=== PATIENT | male | born 2000 | race Caucasian/White ===

== ENCOUNTER 2020-07-23 15:40 | Emergency (ER) | payer SELFPAY ==
[2020-07-23] MEDS ORDERED: Sodium Chloride 0.9% 10 ML Syringe FLUSH PRN (16:27)
[2020-07-23] MEDS ORDERED: Sodium Chloride 0.9% 1,000 ML IV STA (16:27)
[2020-07-23] MEDS ORDERED: LORazepam 2 MG/ML SDV IVPUSH ONE (16:27)
--- NOTE | 2020-07-23 16:32 | EDM.PDOC ---
ED HPI GENERAL MEDICAL PROBLEM - General Chief Complaint: Neurological Problem Stated Complaint: SEIZURE Time Seen by Provider: 07/23/20 16:21 Source of Information: Reports: Patient History Limitations: Reports: No Limitations - History of Present Illness INITIAL COMMENTS - FREE TEXT/NARRATIVE: Patient is a 19-year-old male presenting to the emergency department after having a seizure at work. Patient states that around 1330 this afternoon, he was working. His coworkers state that he fell forward and had what they describe as a tonic-clonic seizure lasting about 1 minute. He states that he was postictal for about 5 minutes and still feels quite groggy at this time. Patient does have a history of seizures. States he had his first when he was a teenager, however at that time he was under the influence of drugs. He had a return of seizures about 1 year ago and states that he is actually had 3 episodes similar to this this week. He has seen Dr. Wheeler, neurologist in [place]. Is currently scheduled for an MRI in the , however he is not currently on any antiseizure medications. She denies any significant pain to his head or face after falling. He states he was bleeding above his upper tooth initially but that has resolved is no longer painful. He admits to social alcohol consumption as well as marijuana use. Denies any other illicit drug use. Headache Pain Score (Numeric/FACES): 7 - Related Data Allergies Allergy/AdvReac Type Severity Reaction Status Date / Time Penicillins Allergy Cannot Verified 07/23/20 16:19 Remember Past Medical History - Past Health History Medical/Surgical History: Denies Medical/Surgical History Neurological History: Reports: Seizure Social & Family History - Tobacco Use Smoking Status *Q: Current Every Day Smoker Years of Tobacco use: 5 Packs/Tins Daily: 1 - Caffeine Use Caffeine Use: Reports: Coffee, Energy Drinks, Soda, Tea - Recreational Drug Use Recreational Drug Use: Yes Recreational Drug Type: Reports: Marijuana/Hashish ED ROS GENERAL - Review of Systems Review Of Systems: See Below Constitutional: Reports: No Symptoms. Denies: Fever, Chills HEENT: Reports: No Symptoms Respiratory: Reports: No Symptoms Cardiovascular: Reports: No Symptoms Endocrine: Reports: No Symptoms GI/Abdominal: Reports: No Symptoms : Reports: No Symptoms Musculoskeletal: Reports: No Symptoms Skin: Reports: No Symptoms Neurological: Reports: Seizure Psychiatric: Reports: No Symptoms Hematologic/Lymphatic: Reports: No Symptoms Immunologic: Reports: No Symptoms - Physical Exam Exam: See Below General Appearance: Alert, WD/WN, No Apparent Distress Eye Exam: Bilateral Eye: Normal Inspection, PERRL Respiratory/Chest: No Respiratory Distress, Lungs Clear, Normal Breath Sounds, No Accessory Muscle Use, Chest Non-Tender Cardiovascular: Normal Peripheral Pulses, Regular Rate, Rhythm, No Edema, No Gallop, No JVD, No Murmur, No Rub GI/Abdominal: Normal Bowel Sounds, Soft, Non-Tender, No Organomegaly, No Distention, No Abnormal Bruit, No Mass Neuro Exam (Abbreviated): Alert, Oriented, CN II-XII Intact, Normal Cognition, Normal Gait, Normal Reflexes, No Motor/Sensory Deficits Psychiatric: Normal Affect, Normal Mood Skin Exam: Warm, Dry, Intact, Normal Color, No Rash Course - Vital Signs Last Recorded V/S: Last Vital Signs Temp 97.6 F 07/23/20 16:14 Pulse 75 07/23/20 16:14 Resp 18 07/23/20 16:14 BP 121/70 07/23/20 16:14 Pulse Ox 99 07/23/20 16:14 - Orders/Labs/Meds Orders: Active Orders 24 hr Category Date Time Status Peripheral IV Care [RC] . DIRECTED Care 07/23/20 16:27 Active Sodium Chloride 0.9% [Normal Saline] 1,000 ml Med 07/23/20 16:27 Active IV NOW Sodium Chloride 0.9% [Saline Flush] Med 07/23/20 16:27 Active 10 ml FLUSH ASDIRECTED PRN Peripheral IV Insertion Adult [OM.PC] Stat Oth 07/23/20 16:27 Ordered Medication Orders Sodium Chloride (Normal Saline) 1,000 mls @ 150 mls/hr IV NOW STA Stop: 07/23/20 23:06 Last Admin: 07/23/20 16:55 Dose: 150 mls/hr Documented by: SOPHIE Sodium Chloride (Saline Flush) 10 ml FLUSH ASDIRECTED PRN PRN Reason: Keep Vein Open Last Admin: 07/23/20 16:57 Dose: 10 ml Documented by: SOPHIE Labs: Laboratory Tests 07/23/20 07/23/20 07/23/20 Range/Units 16:50 16:59 16:59 WBC 8.66 (4.23-9.07) K/mm3 RBC 4.77 (4.63-6.08) M/mm3 Hgb 15.3 (13.7-17.5) gm/dl Hct 45.1 (40.1-51.0) % MCV 94.5 H (79.0-92.2) fl MCH 32.1 (25.7-32.2) pg MCHC 33.9 (32.2-35.5) g/dl RDW Std Deviation 42.8 (35.1-43.9) fL Plt Count 359 H (163-337) K/mm3 MPV 10.0 (9.4-12.3) fl Neut % (Auto) 62.9 (34.0-67.9) % Lymph % (Auto) 28.4 (21.8-53.1) % [place] % (Auto) 7.4 (5.3-12.2) % Eos % (Auto) 1.0 (0.8-7.0) Baso % (Auto) 0.2 (0.1-1.2) % Neut # (Auto) 5.44 H (1.78-5.38) K/mm3 Lymph # (Auto) 2.46 (1.32-3.57) K/mm3 [place] # (Auto) 0.64 (0.30-0.82) K/mm3 Eos # (Auto) 0.09 (0.04-0.54) K/mm3 Baso # (Auto) 0.02 (0.01-0.08) K/mm3 Sodium 140 (136-145) mEq/L Potassium 3.8 (3.5-5.1) mEq/L Chloride 103 (98-107) mEq/L Carbon Dioxide 28 (21-32) mEq/L Anion Gap 12.8 (5-15) BUN 13 (7-18) mg/dL Creatinine 1.0 (0.7-1.3) mg/dL Est Cr Clr Drug Dosing 152.46 mL/min Estimated GFR (MDRD) > 60 (>60) mL/min BUN/Creatinine Ratio 13.0 L (14-18) Glucose 87 (74-106) mg/dL Lactic Acid (0.4-2.0) mmol/L Calcium 9.2 (8.5-10.1) mg/dL Total Bilirubin 0.5 (0.2-1.0) mg/dL AST 19 (15-37) U/L ALT 22 (16-63) U/L Alkaline Phosphatase 68 (46-116) U/L Creatine Kinase 157 (39-308) U/L Total Protein 7.7 (6.4-8.2) g/dl Albumin 4.5 (3.4-5.0) g/dl Globulin 3.2 gm/dL Albumin/Globulin Ratio 1.4 (1-2) Urine Color Yellow (Yellow) Urine Appearance Clear (Clear) Urine pH 7.0 (5.0-8.0) Ur Specific [place] 1.020 (1.005-1.030) Urine Protein Negative (Negative) Urine Glucose (UA) Negative (Negative) Urine Ketones Negative (Negative) Urine Occult Blood Negative (Negative) Urine Nitrite Negative (Negative) Urine Bilirubin Negative (Negative) Urine Urobilinogen 0.2 (0.2-1.0) Ur Leukocyte Esterase Negative (Negative) Urine RBC Not seen (0-5) /hpf Urine WBC Not seen (0-5) /hpf Ur Squamous Epith Cells Not seen (0-5) /hpf Urine Bacteria Not seen (FEW) /hpf Urine Mucus Rare (FEW) /hpf 07/23/20 Range/Units 16:59 WBC (4.23-9.07) K/mm3 RBC (4.63-6.08) M/mm3 Hgb (13.7-17.5) gm/dl Hct (40.1-51.0) % MCV (79.0-92.2) fl MCH (25.7-32.2) pg MCHC (32.2-35.5) g/dl RDW Std Deviation (35.1-43.9) fL Plt Count (163-337) K/mm3 MPV (9.4-12.3) fl Neut % (Auto) (34.0-67.9) % Lymph % (Auto) (21.8-53.1) % [place] % (Auto) (5.3-12.2) % Eos % (Auto) (0.8-7.0) Baso % (Auto) (0.1-1.2) % Neut # (Auto) (1.78-5.38) K/mm3 Lymph # (Auto) (1.32-3.57) K/mm3 [place] # (Auto) (0.30-0.82) K/mm3 Eos # (Auto) (0.04-0.54) K/mm3 Baso # (Auto) (0.01-0.08) K/mm3 Sodium (136-145) mEq/L Potassium (3.5-5.1) mEq/L Chloride (98-107) mEq/L Carbon Dioxide (21-32) mEq/L Anion Gap (5-15) BUN (7-18) mg/dL Creatinine (0.7-1.3) mg/dL Est Cr Clr Drug Dosing mL/min Estimated GFR (MDRD) (>60) mL/min BUN/Creatinine Ratio (14-18) Glucose (74-106) mg/dL Lactic Acid 0.4 (0.4-2.0) mmol/L Calcium (8.5-10.1) mg/dL Total Bilirubin (0.2-1.0) mg/dL AST (15-37) U/L ALT (16-63) U/L Alkaline Phosphatase (46-116) U/L Creatine Kinase (39-308) U/L Total Protein (6.4-8.2) g/dl Albumin (3.4-5.0) g/dl Globulin gm/dL Albumin/Globulin Ratio (1-2) Urine Color (Yellow) Urine Appearance (Clear) Urine pH (5.0-8.0) Ur Specific [place] (1.005-1.030) Urine Protein (Negative) Urine Glucose (UA) (Negative) Urine Ketones (Negative) Urine Occult Blood (Negative) Urine Nitrite (Negative) Urine Bilirubin (Negative) Urine Urobilinogen (0.2-1.0) Ur Leukocyte Esterase (Negative) Urine RBC (0-5) /hpf Urine WBC (0-5) /hpf Ur Squamous Epith Cells (0-5) /hpf Urine Bacteria (FEW) /hpf Urine Mucus (FEW) /hpf Meds: Medications Generic Name Dose Route Start Last Admin Trade Name Freq PRN Reason Stop Dose Admin Sodium Chloride 1,000 mls @ 150 mls/hr 07/23/20 16:27 07/23/20 16:55 Normal Saline IV 07/23/20 23:06 150 mls/hr NOW STA Administration Sodium Chloride 10 ml 07/23/20 16:27 07/23/20 16:57 Saline Flush FLUSH 10 ml ASDIRECTED PRN Administration Keep Vein Open Discontinued Medications Generic Name Dose Route Start Last Admin Trade Name Jax PRN Reason Stop Dose Admin Lorazepam 0.5 mg 07/23/20 16:27 07/23/20 16:55 Ativan IVPUSH 07/23/20 16:28 0.5 mg ONETIME ONE Administration - Re-Assessments/Exams Free Text/Narrative Re-Assessment/Exam: 07/23/20 18:22 Patient's hematology and urinalysis were normal. Lactic acid and creatinine kinase were not elevated anyway. Patient has had no further seizure activity in the ER. CT scan of the head was negative for any acute abnormalities. Called and spoke with Dr. Amaro, neurologist at [facility] and [facility] in [place]. He did not recommend that we start the patient on an antiseizure medication at this time, however he did state that if the patient should have another seizure, he should return to the ER and at that point he would recommend starting an antiseizure medication. He recommends that he keep his appointment for his MRI on the and follow-up with Dr. Wheeler as scheduled. Discussed this plan with the patient and he is in agreement. Discharge instructions as documented. Departure - Departure Time of Disposition: 18:23 Disposition: Home, Self-Care 01 Preliminary Cause of *Q: Sepsis & Multi System Organ Failure Clinical Impression: Seizure - Discharge Information *PRESCRIPTION DRUG MONITORING PROGRAM REVIEWED*: No *COPY OF PRESCRIPTION DRUG MONITORING REPORT IN PATIENT TRUPTI: No Instructions: Seizure, Adult Referrals: Laurent Wheeler MD [Primary Care Provider] - Forms: ED Department Discharge Additional Instructions: You were seen in the emergency department today after having a seizure while at work. Your work-up included blood work, urinalysis, and a CT scan of your head. The results of your work-up were completely normal. There was no abnormalities found on your CT scan and your labs and urinalysis were all normal as well. We did consult with Dr. Amaro, the on-call neurologist at [facility] in [place]. He did not recommend that seizure medications be started at this time, however he did state that if he should have another seizure, he would like to return to the emergency department and at that time would be appropriate to start medication. Based on this, would recommend if you have any further seizure activity, please return to the emergency department. Sepsis Event Note (ED) - Evaluation Sepsis Screening Result: No Definite Risk - Focused Exam Vital Signs: Vital Signs Temp Pulse Resp BP Pulse Ox 07/23/20 16:14 97.6 F 75 18 121/70 99 - My Orders Last 24 Hours: My Active Orders 07/23/20 16:27 Peripheral IV Care [RC] . DIRECTED Sodium Chloride 0.9% [Normal Saline] 1,000 ml IV NOW Sodium Chloride 0.9% [Saline Flush] 10 ml FLUSH ASDIRECTED PRN Peripheral IV Insertion Adult [OM.PC] Stat - Assessment/Plan Last 24 Hours: My Active Orders 07/23/20 16:27 Peripheral IV Care [RC] . DIRECTED Sodium Chloride 0.9% [Normal Saline] 1,000 ml IV NOW Sodium Chloride 0.9% [Saline Flush] 10 ml FLUSH ASDIRECTED PRN Peripheral IV Insertion Adult [OM.PC] Stat
--- NOTE | 2020-07-23 16:59 | CT ---
Head CT Technique: Multiple axial sections through the brain were obtained. Intravenous contrast was not utilized. Findings: Ventricles along with basal cisterns and sulci over the convexities appear within normal limits for the patient's age. No abnormal parenchymal densities are seen. No evidence of intracranial hemorrhage. No midline shift or mass-effect is appreciated. Bone window settings were reviewed. Visualized mastoid sinuses and visualized paranasal sinuses show nothing acute. No acute calvarial finding is seen. Impression: 1. Nothing acute is identified on noncontrast head CT exam. Note: If patient has not been worked up for seizures in the past, consider brain MRI to further evaluate. Diagnostic code #1 This report was dictated in MDT
== END 2020-07-23 18:33 | disposition home or self-care (01) ==
LOC: JD.ED 15:40
DX: R56.9 Unspecified convulsions (principal); F17.210 Nicotine dependence, cigarettes, uncomplicated; Z88.0 Allergy status to penicillin
CPT/HCPCS: 36415; 70450; 80053; 81001; 82550; 83605; 85025; 96361; 96374; 99284; J2060; J7030